=== PATIENT | female | born 1985 | race African-American/Black ===

== ENCOUNTER 2016-12-14 14:28 | Emergency (ER) | payer MEDICAID ==
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
== END 2016-12-14 15:55 | disposition disaster alternative care site (69) ==
LOC: EDBD 14:28 → GMED 14:28
PROC: 0HQ1XZZ Repair Face Skin, External Approach (ICD-10-PCS; principal; 2016-12-14)
DX: S01.411A Laceration without foreign body of right cheek and temporomandibular area, initial encounter (principal); I10 Essential (primary) hypertension; J45.909 Unspecified asthma, uncomplicated; F17.210 Nicotine dependence, cigarettes, uncomplicated; Z88.5 Allergy status to narcotic agent; Z79.899 Other long term (current) drug therapy; X99.8XXA Assault by other sharp object, initial encounter

== ENCOUNTER → 2016-12-14 | Outpatient (CLI) | payer MEDICAID | END | disposition disaster alternative care site (69) | LOC: GAMB 14:13 → EDBD 14:13 | DX: S09.93XA Unspecified injury of face, initial encounter (principal); I10 Essential (primary) hypertension; G89.11 Acute pain due to trauma; R51 Headache; Z88.6 Allergy status to analgesic agent | CPT/HCPCS: A0425; A0429 ==